=== PATIENT | female | born 1960 | race Caucasian/White ===

== ENCOUNTER → 2017-09-10 | Outpatient (CLI) | payer OTHER | END | disposition home or self-care (01) | LOC: CFH 14:03 | PROVIDERS: ATTEND Internal Medicine | DX: R06.89 Other abnormalities of breathing (principal); E03.9 Hypothyroidism, unspecified; Z80.3 Family history of malignant neoplasm of breast | CPT/HCPCS: 71020 ==

== ENCOUNTER → 2017-10-01 | Outpatient (CLI) | payer OTHER | END | disposition home or self-care (01) | LOC: CARD 12:42 | PROVIDERS: ATTEND Internal Medicine | DX: R06.89 Other abnormalities of breathing (principal); E03.9 Hypothyroidism, unspecified; Z80.3 Family history of malignant neoplasm of breast | CPT/HCPCS: 94060; 94726; 94729 ==

== ENCOUNTER → 2018-07-03 | Outpatient (CLI) | payer OTHER ==
[~2018-07-03] MED LIST: ACET325T14 PO; CEFOTETAN PMX 2GM/50ML 50 ML ONE; DEXAMETHASONE 4 MG/ML, 1ML ONE; DIPH12.532 PO; FENTANYL PF 250 MCG/5ML ONE; IBUP200T64 PO; LEVO50TA PO; LIDOCAINE-MPF 2% ,5ML ONE; MIDAZOLAM 1 MG/ML, 2ML ONE; MULT-516 PO; ONDANSETRON 2MG/ML, 2ML ONE; PROPOFOL 10 MG/ML, 20ML ONE
[2018-07-03 16:44] LABS: MICROSCOPIC NOT IND
[2018-07-03 16:46] LABS: BASOPHILS # (AUTO) 0.03 x10^3/uL (0-0.1); BASOPHILS % (AUTO) 0 % (0-1); EOSINOPHILS % (AUTO) 2 % (1-7); LYMPHOCYTES % (AUTO) 38 % (22-44); MD NO; MEAN CORPUSCULAR HEMOGLOBIN 30.9 pg (27.0-34.8); MEAN CORPUSCULAR HGB CONC 33.6 g/dL (32.4-35.8); MEAN PLATELET VOLUME 9.5 fL (7.4-10.4); MONOCYTES # (AUTO) 0.58 x10^3/uL (0.2-0.8); MONOCYTES % (AUTO) 9 % (2-9); NEUTROPHILS # (AUTO) 3.17 x10^3/uL (1.8-6.8); NEUTROPHILS % (AUTO) 51 % (42-75); PLATELET COUNT 225 x10^3/uL (130-400); RED BLOOD COUNT 4.37 x10^6/uL (3.82-5.3); RED CELL DISTRIBUTION WIDTH 13.3 % (9.6-15.2)
[2018-07-03 16:48] LABS: ANION GAP 5 mmol/L (5-15); CALCIUM 9.2 mg/dL (8.5-10.1); CHLORIDE 103 mmol/L (98-107); CREATININE 0.91 mg/dL (0.55-1.02)
[2018-07-03 17:00] LABS: CULTURE INDICATED? NO
== END | disposition home or self-care (01) ==
LOC: STAR 15:43
PROVIDERS: ATTEND Obstetrics & Gynecology
DX: Z01.818 Encounter for other preprocedural examination (principal); N81.4 Uterovaginal prolapse, unspecified
CPT/HCPCS: 36415; 80048; 81003; 84702; 85025; 93005

== ENCOUNTER 2018-07-10 07:06 | Day surgery (SDC) | payer OTHER ==
[~2018-07-10] VITALS: Ht 175.3 cm; Wt 83.4 kg
[~2018-07-10 07:06] MED LIST changes: -CEFOTETAN PMX 2GM/50ML 50 ML ONE; -DEXAMETHASONE 4 MG/ML, 1ML ONE; -FENTANYL PF 250 MCG/5ML ONE; -LIDOCAINE-MPF 2% ,5ML ONE; -MIDAZOLAM 1 MG/ML, 2ML ONE; -ONDANSETRON 2MG/ML, 2ML ONE; -PROPOFOL 10 MG/ML, 20ML ONE
[2018-07-10] MEDS ORDERED: LACTATED RINGERS 1,000 ML IV SCH (07:53)
[2018-07-10] MEDS ORDERED: GABAPENTIN 300 MG CAPSULE PO ONE (08:00)
[2018-07-10] MEDS ORDERED: ACETAMINOPHEN 500 MG TABLET PO ONE (08:00)
[2018-07-10] MEDS ORDERED: APREPITANT 40 MG CAPSULE ONE (08:41)
[2018-07-10] MEDS ORDERED: THROMBIN 5,000 UNIT VIAL TP ONE (08:53)
[2018-07-10] MEDS ORDERED: BUPIVACAINE 0.25% ONE (08:53)
[2018-07-10] MEDS ORDERED: BUPIVACAINE/PF-EPI 0.25% 1:200K ONE (08:53)
[2018-07-10] MEDS ORDERED: FLUORESCEIN SODIUM 500 MG/5 ML ONE (08:53)
[2018-07-10] MEDS ORDERED: DEXAMETHASONE 4 MG/ML, 5ML ONE (09:06)
[2018-07-10] MEDS ORDERED: ONDANSETRON 2MG/ML, 2ML ONE (09:06)
[2018-07-10] MEDS ORDERED: ROCURONIUM 10 MG/ML,10ML ONE (09:06)
[2018-07-10] MEDS ORDERED: PROPOFOL 50 ML ONE ×2 (09:14→10:08)
[2018-07-10] MEDS ORDERED: CLINDAMYCIN 150 MG/ML, 6ML ONE (09:17)
[2018-07-10] MEDS ORDERED: OXYcodone 5 MG/5 ML ORAL.SOL UDC PO PRN (10:30)
[2018-07-10] MEDS ORDERED: FENTANYL PF 100 MCG/2ML IV PRN (10:30)
[2018-07-10] MEDS ORDERED: LABETALOL 5MG/ML, 20ML IV PRN (10:30)
[2018-07-10] MEDS ORDERED: HALOPERIDOL 5 MG/ML IV PRN (10:30)
[2018-07-10] MEDS ORDERED: hydrALAzine 20 MG/ML, 1ML IV PRN (10:30)
[2018-07-10] MEDS ORDERED: HYDROmorphone 1 MG/ML, 1ML IV PRN (10:30)
[2018-07-10] MEDS ORDERED: PROMETHAZINE 25 MG/ML, 1ML IV PRN (10:30)
[2018-07-10] MEDS ORDERED: MEPERIDINE/PF 25MG/0.5ML IVPush PRN (10:30)
[2018-07-10] MEDS ORDERED: OXYcodone 5 MG/5 ML ORAL.SOL UDC ONE (11:50)
[2018-07-10] MEDS ORDERED: FENTANYL PF 100 MCG/2ML ONE (11:56)
[2018-07-10] MEDS ORDERED: OXYcodone/APAP 5/325MG TABLET ONE (14:51)
[2018-07-10] MEDS ORDERED: KETOROLAC 30 MG/1 ML ONE (14:52)
[2018-07-10] MEDS ORDERED: KETOROLAC 30 MG/1 ML IVPush PRN (15:00)
[2018-07-10] MEDS ORDERED: OXYcodone/APAP 5/325MG TABLET PO PRN (15:00)
== END 2018-07-10 16:40 | disposition home or self-care (01) ==
LOC: OUT 07:06
PROVIDERS: ATTEND Obstetrics & Gynecology
DX: N81.4 Uterovaginal prolapse, unspecified (principal); D25.0 Submucous leiomyoma of uterus; E03.9 Hypothyroidism, unspecified; N88.8 Other specified noninflammatory disorders of cervix uteri; Z88.1 Allergy status to other antibiotic agents; Z88.8 Allergy status to other drugs, medicaments and biological substances; Z98.890 Other specified postprocedural states; Z79.899 Other long term (current) drug therapy
CPT/HCPCS: 57260; 57283; 58552; 88307; J1100; J1885; J2250; J2405; J2704; J3010; J3490; J7120; J8501; S0074